=== PATIENT | female | born 1990 | race Hispanic/Latino ===

== ENCOUNTER 2025-01-02 09:46 | Emergency (ER) | payer OTHER ==
[~2025-01-02] VITALS: Ht 172.7 cm; Wt 129.3 kg
[2025-01-02] MEDS: KETOROLAC TROMETHAMINE 30 MG/ML VIAL IV STA (10:46)
[2025-01-02] MEDS: FAMOTIDINE 20 MG/2 ML VIAL IV ONE (10:46)
[2025-01-02] MEDS: ONDANSETRON HCL INJ 2MG/ML 2ML 2 MG/ML VIAL IV ONE (10:46)
[2025-01-02] MEDS: DICYCLOMINE HCL 20 MG/2 ML VIAL IM ONE (10:46)
[2025-01-02] MEDS: LACTATED RINGER'S 1,000 ML INJ ONE (10:46)
[2025-01-02] MEDS ORDERED: MAALOX MAXIMUM355 ML PO (11:06)
[2025-01-02] MEDS ORDERED: FAMOTIDINE20 MG PO (11:06)
[2025-01-02] MEDS ORDERED: ONDANSETRON ODT4 MG PO (11:06)
[2025-01-02 11:42] VITALS: RESP 18; TEMP 97.4; O2SAT 100
[2025-01-02 12:07] VITALS: PULSE 75
== END 2025-01-02 12:07 | disposition home or self-care (01) ==
LOC: FSED 09:51
DX: R11.2 Nausea with vomiting, unspecified (principal); K52.9 Noninfective gastroenteritis and colitis, unspecified; R10.11 Right upper quadrant pain; R10.12 Left upper quadrant pain; E86.0 Dehydration
CPT/HCPCS: 74176; 80048; 80076; 81003; 81025; 85025; 96372; 96374; 96375; 99284; J0500; J1308; J1885; J2405; J7121

== ENCOUNTER 2025-03-10 02:09 | Emergency (ER) | payer OTHER ==
[~2025-03-10] VITALS: Ht 172.7 cm; Wt 125.6 kg
[~2025-03-10 02:09] MED LIST: FAMOTIDINE20 MG PO; MAALOX MAXIMUM355 ML PO; ONDANSETRON ODT4 MG PO
[2025-03-10 02:19] VITALS: PULSE 67; RESP 18; TEMP 97.4
[2025-03-10] MEDS: KETOROLAC TROMETHAMINE 30 MG/ML VIAL IV STA (03:11)
[2025-03-10] MEDS: FAMOTIDINE 20 MG/2 ML VIAL IV STA (03:11)
[2025-03-10] MEDS: LACTATED RINGER'S 1,000 ML IV ONE (03:11)
[2025-03-10] MEDS: ONDANSETRON HCL INJ 2MG/ML 2ML 2 MG/ML VIAL IV STA (03:11)
[2025-03-10] MEDS: DICYCLOMINE HCL 20 MG/2 ML VIAL IM ONE (03:12)
[2025-03-10] MEDS ORDERED: ONDANSETRON ODT4 MG PO (04:32)
[2025-03-10] MEDS ORDERED: MAALOX MAXIMUM355 ML PO (04:33)
[2025-03-10] MEDS ORDERED: IOPAMIDOL 370 MG/ML 100 ML INFUS..BTL INJ ONE (04:33)
[2025-03-10] MEDS ORDERED: FAMOTIDINE20 MG PO (04:34)
[2025-03-10 04:54] VITALS: BP 123/87; PULSE 67; RESP 18; TEMP 98; O2SAT 97
== END 2025-03-10 04:54 | disposition home or self-care (01) ==
LOC: FSED 02:18
DX: K52.9 Noninfective gastroenteritis and colitis, unspecified (principal); E86.0 Dehydration; E86.1 Hypovolemia; R10.10 Upper abdominal pain, unspecified; J45.909 Unspecified asthma, uncomplicated
CPT/HCPCS: 74177; 81003; 81025; 96372; 99284; J0500; J1308; J1885; J2405; J2470; J7121; Q9967